=== PATIENT | male | born 1990 | race Caucasian/White ===

== ENCOUNTER 2016-12-10 21:05 | Emergency (ER) | payer SELFPAY ==
[~2016-12-10] VITALS: Ht 175.3 cm; Wt 163.0 kg
[2016-12-10 21:30] VITALS: BP 154/98
== END 2016-12-10 21:50 | disposition home or self-care (01) ==
LOC: ER 21:32
DX: T51.0X1A Toxic effect of ethanol, accidental (unintentional), initial encounter (principal); G92 Toxic encephalopathy; Z91.013 Allergy to seafood; Y92.810 Car as the place of occurrence of the external cause
CPT/HCPCS: 99283